=== PATIENT | female | born 1955 | race African-American/Black ===

== ENCOUNTER 2016-08-24 17:01 | Emergency (ER) | payer OTHER ==
[~2016-08-24 17:01] MED LIST: ALBU1AER INH; CYCL1PAK PO; GLUCTAB PO; HYZA100T6 PO; MACR100C PO; METO25 PO; NAPR-576 PO; TRAM50 PO
[2016-08-24 17:04] VITALS: BP 118/81; PULSE 91; RESP 20; TEMP 99.3; O2SAT 97
[2016-08-24] MEDS ORDERED: METF500T PO (17:25)
[2016-08-24 17:26] VITALS: BP 121/78; PULSE 86; RESP 18; O2SAT 96
[2016-08-24] MEDS ORDERED: VICT18IN SQ (17:26)
[2016-08-24] MEDS ORDERED: METO25TA6 PO (17:26)
[2016-08-24] MEDS ORDERED: HYZA100T6 PO (17:26)
[2016-08-24] MEDS ORDERED: DAPA1TAB3 PO (17:26)
[2016-08-24] MEDS ORDERED: CALC500T35 PO (17:26)
[2016-08-24] MEDS ORDERED: IRON27TA PO (17:26)
[2016-08-24] MEDS ORDERED: CYCL1TAB29 PO (17:26)
[2016-08-24] MEDS ORDERED: VENTAER INH (17:26)
[2016-08-24] MEDS ORDERED: SYMB160A INH (17:26)
[2016-08-24] MEDS ORDERED: RESP: ALBUTEROL 2.5 MG/IPRATROPIUM 0.5 MG NEB (SCH) NEB ONE (17:30)
[2016-08-24] MEDS ORDERED: predniSONE 20 MG TAB PO ONE (17:30)
--- NOTE | 2016-08-24 17:31 | PD ---
HPI Chief Complaint: Respiratory Symptoms Time Seen by Provider: 17:15 Travel History International Travel<30 days: No Contact w/Intl Traveler<30days: No Traveled to known affect area: No History of Present Illness HPI This 61-year-old female is complaining of shortness of breath and wheezing. She has a history of asthma all her life. She is on several medications that she says she is taking. She is not on prednisone at this time. She says her apartment is currently being treated with molds. She was in the department today feels like her wheezing is worse. She has not had fever or chills. She is not having chest pain. She does have a history of diabetes PFSH Past Medical History Asthma: Yes Blood Disorders: No Cardiovascular Problems: Yes Cerebrovascular Accident: No Diabetes: Yes Patient Takes Glucophage: Yes Hypertension: Yes Respiratory: Yes (ASTHMA) Immunizations Current: Yes Myocardial Infarction: No Seizures: No Ulcer: No Influenza Vaccination: No ?: Not Past Surgical History Section: Yes (X2) Gynecologic Surgery: Yes (CONOZATION OF UTERUS) Hysterectomy: Yes Social History Alcohol Use: No Tobacco Use: No Substance Use: No Allergies-Medications (Allergen,Severity, Reaction): Coded Allergies: Flagyl (Verified Allergy, Severe, HIVES, 02/01/14) Sulfa (Verified Allergy, Severe, HIVES, 02/01/14) Norvasc (Verified Allergy, Intermediate, SWELLING, 02/01/14) Reported Meds & Prescriptions Reported Meds & Active Scripts Active Prednisone 20 Mg Tab 60 Mg PO DAILY 4 Days Reported Ventolin Hfa 18 GM Inh (Albuterol Sulfate) 90 Mcg/Act Aer 2 Puff INH Q4H PRN Calcium (Oyster Shell) 500 Mg Tab 250 Mg PO DAILY Iron (Ferrous Gluconate) 27 Mg Tab 65 Mg PO DAILY Victoza Inj (Liraglutide Inj) 18 Mg/3 Ml Pen 1.8 Mg SQ DAILY Flexeril (Cyclobenzaprine HCl) 10 Mg Tab 10 Mg PO TID Hyzaar (Losartan-Hydrochlorothiazide) 100-25 Mg Tab 1 Tab PO DAILY Farxiga (Dapagliflozin) 10 Mg Tab 10 Mg PO DAILY Metoprolol Succinate ER 24 HR (Metoprolol Succinate) 25 Mg Tab 25 Mg PO DAILY Symbicort Inh (Budesonide/Formoterol Fumarate) 160-4.5 Mcg/Act Aero 1 Puff INH Q12HR Metformin (Metformin HCl) 500 Mg Tab 500 Mg PO BIDPC With meals Review of Systems General / Constitutional: No: Fever, Chills Eyes: No: Diploplia, Blurred Vision HENT: No: Headaches, Vertigo Cardiovascular: No: Chest Pain or Discomfort, Palpitations Respiratory: Positive: Shortness of Breath, Wheezing, No: Cough Gastrointestinal: No: Vomiting, Diarrhea Genitourinary: No: Urgency, Frequency Musculoskeletal: No: Myalgias Physical Exam Narrative GENERAL: Well-developed female SKIN: Focused skin assessment warm/dry. HEAD: Atraumatic. Normocephalic. EYES: Pupils equal and round. No scleral icterus. No injection or drainage. ENT: No nasal bleeding or discharge. Mucous membranes pink and moist. NECK: Trachea midline. No JVD. CARDIOVASCULAR: Regular rate and rhythm. No murmur appreciated. RESPIRATORY: No accessory muscle use. There are scattered bilateral expiratory wheezes. Breath sounds equal bilaterally. GASTROINTESTINAL: Abdomen soft, non-tender, nondistended. Hepatic and splenic margins not palpable. MUSCULOSKELETAL: No obvious deformities. No clubbing. No cyanosis. No edema. NEUROLOGICAL: Awake and alert. No obvious cranial nerve deficits. Motor grossly within normal limits. Normal speech. PSYCHIATRIC: Appropriate mood and affect; insight and judgment normal. Data Data Last Documented VS Vital Signs Date Time Temp Pulse Resp B/P Pulse Ox O2 Delivery O2 Flow Rate FiO2 08/24/16 17:50 97 21 08/24/16 17:26 86 18 121/78 Room Air 08/24/16 17:04 99.3 Orders Albuterol-Ipratropium Neb (Duoneb Neb) (08/24/16 17:30) Prednisone (Deltasone) (08/24/16 17:30) [facility] Medical Decision Making Medical Screen Exam Complete: Yes Emergency Medical Condition: Yes Medical Record Reviewed: Yes Differential Diagnosis After treatment her wheezing has improved. She'll be put on prednisone 60 mg daily for 4 days. I have cautioned her that she will have to follow her diabetes more closely as this will elevate her blood sugar. She is stable for discharge Narrative Course Patient has been given nebulizer treatment with improvement of her wheezing. She is stable for discharge Diagnosis Primary Impression: Asthma exacerbation Scripts Prednisone 20 Mg Tab60 Mg PO DAILY 4 Days Ref 0 Prov:Skip Camacho MD 08/24/16 Disposition: 01 DISCHARGE HOME Condition: Stable Skip Camacho MD Aug 24, 2016 17:31
[2016-08-24 17:50] VITALS: O2SAT 97
[2016-08-24] MEDS ORDERED: PRED20 PO (17:52)
[2016-08-24 18:48] VITALS: BP 143/64
== END 2016-08-24 18:52 | disposition home or self-care (01) ==
LOC: PHED 17:01
DX: J45.901 Unspecified asthma with (acute) exacerbation (principal); I10 Essential (primary) hypertension
CPT/HCPCS: 94664; 99283; J7512